=== PATIENT | male | born 1995 | race African-American/Black ===

== ENCOUNTER 2022-06-13 22:09 | Emergency (ER) | payer SELFPAY ==
[~2022-06-13] VITALS: Ht 160 cm; Wt 54.5 kg
[2022-06-13 22:10] VITALS: TEMP 97.4
[2022-06-13 22:30] LABS: HEMATOCRIT 46.4 % (42.0-52.0); HEMOGLOBIN 14.8 g/dl (13.5-18.0); MEAN CELL VOLUME 84 fl (80.0-100.0); MEAN CORPUSCULAR HEMOGLOBIN 27 pg (27-31); MEAN CORPUSCULAR HGB CONC 32 g/dl (33.0-37.0); MEAN PLATELET VOLUME 9.8 fl (7.4-10.4); PLATELET COUNT 313 K/mm3 (130-400); RED BLOOD COUNT 5.53 M/mm3 (4.20-5.60); REDCELL DISTRIBUTION WIDTH-CV 12.9 % (11.5-14.5)
[2022-06-13 22:35] LABS: COLLECTION METHOD CLEAN CATCH
[2022-06-13 22:45] LABS: BAND 1 % (0-10); BASOPHIL 1 % (0-2); EOSINOPHIL 1 % (0-4); LYMPHOCYTE 38 % (20.0-51.0); NEUTROPHILS 53 % (42.0-75.2); PLATELET ESTIMATE NORMAL (NORMAL)
[2022-06-13 22:51] LABS: ALBUMIN 4.8 gm/dL (3.5-5.0); BILIRUBIN,TOTAL 0.9 mg/dL (0.2-1.2); CALCIUM 9.6 mg/dL (8.4-10.2); CREATININE, serum 1.2 mg/dL (0.72-1.25); POTASSIUM 4.2 mmol/L (3.5-4.5); TOTAL PROTEIN 8.4 gm/dL (6.2-8.1)
[2022-06-13 22:55] LABS: TRICYCLIC ANTIDEPRESS URINE NEGATIVE
[2022-06-13 22:56] LABS: PH 7.5 (5.0-8.5); URINE APPEARANCE Clear (CLEAR/HAZY); URINE BLOOD Negative (NEGATIVE); URINE COLOR Yellow (YELLOW); URINE GLUCOSE Negative (NEGATIVE); URINE KETONE TRACE (NEGATIVE); URINE NITRATE Negative (NEGATIVE); URINE PROTEIN(semi-quant) Negative (NEGATIVE); URINE UROBILINOGEN 0.2 E.U/dL (0.2-1.0)
[2022-06-13 23:01] LABS: AMORPHOUS CRYSTAL Present (NOT PRESENT); MUCOUS Present (NOT PRESENT); SQUAMOUS EPITHELIAL None Seen /hpf (0-10); URINE BACTERIA None Seen /hpf (NONE SEEN); URINE RBC 0-2 /hpf (0-2)
[2022-06-13 23:04] LABS: PROLACTIN 79.1 ng/mL (3.46-19.40)
[2022-06-14 00:08] VITALS: BP 123/78; PULSE 79
== END 2022-06-14 00:10 | disposition home or self-care (01) ==
LOC: COL.ER 22:09
PROVIDERS: Nurse Practitioner
DX: R25.8 Other abnormal involuntary movements (principal)
CPT/HCPCS: J2405; J7030